=== PATIENT | female | born 1970 | race Caucasian/White ===

== ENCOUNTER 2021-02-28 15:59 | Inpatient (IN) | payer SELFPAY ==
[~2021-02-28] VITALS: Ht 157.5 cm; Wt 64.9 kg
[2021-02-28 19:15] LABS: EOS # 0.1 K/mm3 (0.0-0.7); EOS % 2.5 % (0.0-4.0); GRAN # 2.5 K/mm3 (1.4-6.5); GRAN % 62.2 % (42.2-75.2); HEMOGLOBIN 12.4 g/dl (12.5-16.0); LYMPH % 25.4 % (20.0-51.0); MEAN CELL VOLUME 88 fl (80.0-100.0); MEAN CORPUSCULAR HEMOGLOBIN 30 pg (27-31); MEAN CORPUSCULAR HGB CONC 34 g/dl (33.0-37.0); MEAN PLATELET VOLUME 10.6 fl (7.4-10.4); MONO # 0.3 K/mm3 (0.1-0.6); MONO % 8.6 % (1.7-9.3); PLATELET COUNT 71 K/mm3 (130-400); REDCELL DISTRIBUTION WIDTH-CV 16.2 % (11.5-14.5)
[2021-02-28 19:29] LABS: ACETONE,SERUM NEGATIVE
[2021-02-28 19:31] LABS: ALANINE AMINOTRANSFERASE 49 U/L (0-55); ALKALINE PHOSPHATASE 164 U/L (40-150); ANION GAP 8 mmol/L (7-16); AST,SGOT 99 U/L (5-34); BILIRUBIN,TOTAL 2.6 mg/dL (0.2-1.2); BLOOD UREA NITROGEN 6 mg/dL (10-20); CALCIUM 7.6 mg/dL (8.4-10.2); CARBON DIOXIDE 20 mmol/L (22-29); CHLORIDE 101 mmol/L (98-107); CREATININE, serum 0.79 mg/dL (0.57-1.11); GLUCOSE 332 mg/dL (70-99); LIPASE 41 U/L (8-78); POTASSIUM 3.8 mmol/L (3.5-4.5); SODIUM 129 mmol/L (136-145); TOTAL PROTEIN 9.2 gm/dL (6.2-8.1)
[2021-02-28 19:52] LABS: HEMATOCRIT 36.9 % (37.0-47.0)
[2021-02-28] MEDS ORDERED: ADMELOG SO100 UNIT/1 SQ (22:41)
[2021-02-28] MEDS ORDERED: CARAFATE 1GM1 G PO (22:41)
[2021-02-28] MEDS ORDERED: LANTUS SOLOS100 U/ML SQ (22:41)
[2021-02-28] MEDS ORDERED: PROTONIX 40MG T40 MG PO (22:42)
[2021-02-28] MEDS ORDERED: SYNTHROID0.1 MG/TAB PO (22:42)
[2021-02-28] MEDS ORDERED: PEPCID 20MG TAB20 MG PO (22:42)
[2021-02-28] MEDS ORDERED: BUSPAR10 MG PO (22:42)
[2021-02-28] MEDS ORDERED: FERROUSAL325 MG PO (22:43)
[2021-02-28] MEDS ORDERED: SEROQUEL 1100 MG/TAB PO (22:43)
[2021-02-28] MEDS ORDERED: WELLBUTRIN XL150 MG PO (22:44)
[2021-02-28] MEDS ORDERED: FLORINEF ACETA0.1 MG PO (22:44)
[2021-02-28] MEDS ORDERED: STEGLATRO5 MG PO (22:44)
[2021-02-28] MEDS ORDERED: TRULICITY0.75 MG/0. SQ (22:45)
[2021-02-28 23:20] VITALS: BP 93/56; PULSE 79; TEMP 97.4
--- NOTE | 2021-02-28 23:30 | NUR ---
PT ARRIVED BY CART. TRANSFERRED SELF FROM CART TO BED. ORIENTED TO SURROUNDINGS AND BED. VSS. PT ON 2L O2 WHICH IS WHAT SHE WEARS CHRONICALLY. CALL LIGHT WITHIN REACH.
[2021-02-28 23:42] LABS: INR 1.4 (0.8-3.0); PROTHROMBIN TIME 15.6 SECONDS (9.7-12.8)
[2021-03-01] MEDS ORDERED: MIRALAX PA17 GM/Dose PO (01:22)
[2021-03-01 04:32] VITALS: BP 94/54; PULSE 84; TEMP 97.3
[2021-03-01 05:04] LABS: COLLECTION METHOD CLEAN CATCH
[2021-03-01 05:30] LABS: PH 6 (5-8); SQUAMOUS EPITHELIAL 0-2 /hpf (0-10); URINE APPEARANCE Clear (CLEAR/HAZY); URINE BACTERIA Rare (NONE SEEN); URINE BILIRUBIN Negative (NEGATIVE); URINE BLOOD Negative (NEGATIVE); URINE COLOR Yellow (YELLOW); URINE GLUCOSE 3+ (NEGATIVE); URINE KETONE Negative (NEGATIVE); URINE LEUKOCYTE ESTERASE 1+ (NEGATIVE); URINE NITRATE Negative (NEGATIVE); URINE PROTEIN(semi-quant) Negative (NEGATIVE); URINE RBC None Seen /hpf (0-2); URINE UROBILINOGEN Negative (NEGATIVE)
[2021-03-01 07:47] VITALS: BP 83/49; PULSE 70; TEMP 97.7
--- NOTE | 2021-03-01 08:30 | NUR ---
Assessment completed, alert/oriented, vital signs stable, denies pain or acute discomfort at this time, blood glucose levels remain high >300 and treating with SSI as ordered, lungs are CTA/ no reps.difficulty noted, on Rocephin and Azithromycin for PNA, morning meds given, SCD's in place, she denies other needs at this time
[2021-03-01 11:34] VITALS: BP 81/44; PULSE 83; TEMP 97.5
--- NOTE | 2021-03-01 13:38 | NUR ---
protective services social worker met with patient to discuss discharge plan. Patient recently moved here about 6 weeks ago with her friend Nathaniel from [place], [place]. Patient states that they had talked about it for a while and due to her MH needs, she wanted to be somewhere more "quiet". Patient states she has known Nathaniel for about 2 years and that in [place] they got along fine, but upon moving out here their relationship went downhill and states that it's not good for her PTSD to stay with him. Patient has since vamsi staying at [facility] since 02/27 and is hoping to get back to her life partner Yobany in [place]. Patient reports that she is independent with her activities of daily living and that she uses a cane to ambulate. Patient reports to no oxygen needs. She currently does not have a PCP here in [place] or a pharmacy. Patient does not have a [facility] established. She is not but does have a grown daughter named Pepper ([phone]). Upon discharge, this patient is wanting to dc back to the [facility]. Contact made with the [facility] who states they will be able to take the patient back. Upon dc patient will need a taxi voucher and possibly a medication voucher for insulin. Discharge plan: [facility]
[2021-03-01 16:27] VITALS: BP 94/59; PULSE 82; TEMP 98.2
[2021-03-01 19:24] VITALS: BP 94/58; PULSE 86; TEMP 97.8
[2021-03-02] VITALS (7 sets, daily range): BP systolic 85–103; BP diastolic 45–59; PULSE 74–89; TEMP 97.4–98.6
--- NOTE | 2021-03-02 03:29 | NUR ---
PT RESTING QUIETLY IN BED @ THIS TIME. PT HAD STATED THAT SHE HAD "GERD PAIN" EARLIER IN NIGHT ET THAT HER HIPS ET LEGS WERE ACHING. PT IS ENCOURAGED TO ELEVATE THE HOB ET TO DRINK WATER. PT DENIES NEED FOR PAIN MEDICATION FOR HIPS ET LEGS WHEN ASKED, STATES THAT THE REASONING IS THAT THE BEDS HERE ARE UNCOMFORTABLE. PT IS PLEASANT ET COOPERATIVE WITH CARES, HAD SF JELLO ET HOT TEA FOR A SNACK. DENIES OTHER NEEDS. RESPIRATIONS UNLABORED. CALL LIGHT WITHIN REACH.
--- NOTE | 2021-03-02 04:43 | NUR ---
Mallory JAIMES APRN MADE AWARE OF PT'S BLOOD PRESSURES. NO NEW ORDERS.
--- NOTE | 2021-03-02 09:18 | NUR ---
Patient complains of headache this am, request caffeinated tea. Alert, oriented x4, makes needs known. Denies other complaints. Uses SBA and walker when out of bed. Showers this am. Telemetry on. No s/s insulin required this am. Patient declines long acting insulin this am. Flu shot given, information sheet given. Makes needs known. RFA INT patent, no redness or edema. Call light within reach. Bed alarm on.
[2021-03-02 12:38] LABS: CALCIUM 7.4 mg/dL (8.4-10.2); CREATININE, serum 0.76 mg/dL (0.57-1.11)
[2021-03-02 13:06] LABS: POTASSIUM 2.9 mmol/L (3.5-4.5)
--- NOTE | 2021-03-02 13:36 | NUR ---
Dr. Colon notified at 1324 of critical potassium. He states he will enter orders.
--- NOTE | 2021-03-02 16:32 | NUR ---
Patient taking in potassium orally. Denies other complaints. Call for assistance. rEsts between disturbances. CAll light within reach.
--- NOTE | 2021-03-02 18:41 | NUR ---
Patient denies complaints this evening. Makes needs known. Call light within reach. Taking in potassium without issue.
[2021-03-03 00:39] VITALS: BP 100/59; PULSE 83; TEMP 97.9
--- NOTE | 2021-03-03 01:59 | NUR ---
PT APPEARS TO BE SLEEPING @ THIS TIME, EYES ARE CLOSED ET RESPIRATIONS UNLABORED. CALL LIGHT WITHIN REACH. PT HAD STATED THAT SHE HAD "EYE PAIN" EARLIER, HAD ALSO POINTED TO HER FOREHEAD, ET REQUESTED TYLENOL. PT STATES THAT THESE ARE NOT NEW AND SHE'S HAD THEM BEFORE. Mallory JAIMES APRN WAS CONTACTED ET NEW ORDERS WERE RECIEVED. PT WAS ADMINISTERED TYLENOL. PT HAS AMBULATED MULTIPLE TIMES WITH SBA TO BR TO VOID. GAIT IS STEADY. PT FREQUENTLY REQUESTS DECAF HOT TEA TO DRINK.
[2021-03-03 04:22] VITALS: BP 98/55; PULSE 92; TEMP 98.4
[2021-03-03 07:20] VITALS: BP 98/53; PULSE 82; TEMP 98.3
[2021-03-03 07:27] LABS: MAGNESIUM 1.5 mg/dL (1.6-2.6); PHOSPHOROUS 1.5 mg/dL (2.3-4.7)
[2021-03-03 08:32] LABS: BASO % 1.6 % (0.0-2.0); EOS # 0.1 K/mm3 (0.0-0.7); EOS % 2.4 % (0.0-4.0); GRAN # 1.5 K/mm3 (1.4-6.5); HEMOGLOBIN 10.9 g/dl (12.5-16.0); LYMPH # 0.7 K/mm3 (1.2-3.4); LYMPH % 28.4 % (20.0-51.0); MEAN CELL VOLUME 89 fl (80.0-100.0); MEAN CORPUSCULAR HEMOGLOBIN 29 pg (27-31); MEAN CORPUSCULAR HGB CONC 32 g/dl (33.0-37.0); MEAN PLATELET VOLUME 11.4 fl (7.4-10.4); MONO # 0.2 K/mm3 (0.1-0.6); MONO % 9.2 % (1.7-9.3); PLATELET COUNT 54 K/mm3 (130-400); RED BLOOD COUNT 3.79 M/mm3 (4.10-5.30); REDCELL DISTRIBUTION WIDTH-CV 16.6 % (11.5-14.5)
[2021-03-03 08:40] LABS: CALCIUM 7.5 mg/dL (8.4-10.2); CREATININE, serum 0.72 mg/dL (0.57-1.11); POTASSIUM 3.3 mmol/L (3.5-4.5)
[2021-03-03 08:46] LABS: HEMATOCRIT 33.7 % (37.0-47.0)
[2021-03-03] MEDS ORDERED: LANCETS MC (11:45)
[2021-03-03] MEDS ORDERED: GLUCOSE TEST ST1 DEV MC (11:45)
[2021-03-03 11:46] VITALS: BP 95/58; PULSE 84; TEMP 97.6
[2021-03-03] MEDS ORDERED: PROAIR HFA0.09 MG/AC IH (11:49)
[2021-03-03] MEDS ORDERED: DOXYCYCLINE 10100 MG PO (11:50)
[2021-03-03] MEDS ORDERED: NOVOLOG 100U100 U/M1 SQ (11:53)
[2021-03-03] MEDS ORDERED: INSULIN AS100 UNIT/5 SQ (11:55)
[2021-03-03] MEDS ORDERED: SYNTHROID0.1 MG/TAB PO (11:56)
[2021-03-03] MEDS ORDERED: FLORINEF ACETA0.1 MG PO (11:56)
[2021-03-03] MEDS ORDERED: PROTONIX 40MG T40 MG PO (12:04)
--- NOTE | 2021-03-03 14:00 | NUR ---
Reviewed discharge instructions with pt to include all prescriptions and follow up appointment. Called [facility] for her ride. Was told it would be 3:00pm before they can get here. INT removed from right forearm
--- NOTE | 2021-03-03 14:05 | NUR ---
The clinical team is ready to discharge the patient today. RY contacted Maryse at [facility]. Maryse reports that the patient is good to come back to them today. RY met with the patient to update. The patient is good with going back to the [facility] today. She reports that she does not have a PCP or has been established at a clinic yet. She was agreeable to getting set up at the [facility]. She reports that she has Medicare and possibly Medicaid out of [place], but is unsure if it is active here. She does not have a copy of the cards. RY consulted Financial Counseling. The patient reports that she is unsure if she will be able to afford her meds. RY provided the patient with med voucher to [facility]. The total was $249.00. RY faxed the med voucher to [facility] and requested that they deliver the meds to the [facility]. Jose L, at [facility], reports that they will deliver her meds to the [facility]. RY also provided the patient's RN with a taxi voucher to the [facility]. RY contacted [facility] and secured the patient and appointment there on Wednesday, 03/11, at 1320. RY notified the party plan sales unit advisor of the appointment. RY faxed the patient's records to [facility]. The patient is to discharge today, 03/03, back to [facility]. No additional needs at this time.
--- NOTE | 2021-03-03 15:18 | NUR ---
[facility] here to get pt, pt escorted out
== END 2021-03-03 15:20 | disposition home or self-care (01) | DRG 871 ==
LOC: COL.ER 15:59 → SURG 21:36
PROVIDERS: Emergency Medicine; Nurse Practitioner Family; Physician Assistant; ADMIT Internal Medicine
DX: A41.9 Sepsis, unspecified organism (principal); J96.01 Acute respiratory failure with hypoxia; J18.9 Pneumonia, unspecified organism; J44.0 Chronic obstructive pulmonary disease with (acute) lower respiratory infection; E87.1 Hypo-osmolality and hyponatremia; E27.40 Unspecified adrenocortical insufficiency; E11.65 Type 2 diabetes mellitus with hyperglycemia; Z86.16 Personal history of COVID-19; D64.9 Anemia, unspecified; D69.6 Thrombocytopenia, unspecified; K21.9 Gastro-esophageal reflux disease without esophagitis; F41.9 Anxiety disorder, unspecified; F32.A Depression, unspecified; F43.10 Post-traumatic stress disorder, unspecified; E87.6 Hypokalemia; Z79.4 Long term (current) use of insulin; Z59.00 Homelessness unspecified; Z20.822 Contact with and (suspected) exposure to COVID-19
CPT/HCPCS: 99223-AI; 99233-AI; 99239; J0456; J0696; J1720; J1815; J2405; J3475; J7030; J7050